=== PATIENT | female | born 2000 ===

== ENCOUNTER 2025-01-30 20:57 | Outpatient (CLI) | payer SELFPAY ==
[2025-01-30 21:07] VITALS: BMI 36.6
[2025-01-30 21:25] VITALS: BP 124/79; PULSE 106
[2025-01-30 22:05] VITALS: BP 116/74; PULSE 96
[2025-01-30 22:18] VITALS: BP 116/67; PULSE 96
[2025-01-30 22:48] VITALS: BP 114/85; PULSE 92
[2025-01-30 23:20] VITALS: BP 114/85; PULSE 92; RESP 16; TEMP 36.7; O2SAT 97
== END 2025-01-30 23:30 | disposition home or self-care (01) ==
LOC: OPOB 21:01 → OBGYN 21:02
PROVIDERS: Visit Provider Family Medicine
DX: O26.899 Other specified pregnancy related conditions, unspecified trimester (principal); Z3A.00 Weeks of gestation of pregnancy not specified; R10.9 Unspecified abdominal pain
CPT/HCPCS: 59025; 99211

== ENCOUNTER 2025-02-03 23:43 | Inpatient (IN) | payer SELFPAY ==
[2025-02-03 23:01] VITALS: BP 127/63; PULSE 88
[2025-02-03 23:11] VITALS: BMI 37.6
[2025-02-03 23:22] VITALS: BP 109/60; PULSE 91
[2025-02-04] VITALS (78 sets, daily range): BP systolic 92–169; BP diastolic 50–97; PULSE 81–118; RESP 16–20; TEMP 36.6–37.1; O2SAT 97–100
[2025-02-04 00:54] LABS: PCP Screen Urine Negative (Negative)
[2025-02-04 01:19] LABS: Hematocrit 39.2 % (36-47); Hemoglobin 12.70 g/dL (11.27-16.99); Mean Corpuscular HGB Conc 32.4 g/dL (30-55); Mean Corpuscular Hemoglobin 27.4 pg (27-33); Mean Corpuscular Volume 84.7 fl (85-98); Nucleated Red Blood Cells % 0 %; Platelet Count 242 10^3/cmm (157-399); Red Blood Count 4.63 10^6/uL (3.85-5.65); White Blood Count 11.82 10^3/uL (3.29-11.43)
[2025-02-04 01:47] LABS: HIV 1 & 2 Antigen Non-Reactive (Non-Reactiv)
[2025-02-04 01:51] LABS: Hepatitis B Surface Antigen Non-Reactive (Nonreactive); Rapid Plasma Reagin Syphilis Nonreactive (Nonreactive)
[2025-02-04 01:57] LABS: Neisseria Gonorrhea NOT DETECTED (Negative)
--- NOTE | 2025-02-04 07:24 | PM.OBGYHP ---
Providers/Chief Complaint Admitting Physician: William Wills MD Chief Complaint: possible ROM HPI MANAGER BUSINESS PROCESS History of Present Illness Regi Fowler is a 24 year old G3, P0 female that presented at 40 weeks 6 days to labor and delivery with possible rupture membranes. Active problem was positive after arrival. Initial check was /3. Patient's is complicated by poor care. The patient did not receive any care until approximately 36 weeks. The patient has 1 ultrasound that was done at 37 weeks and dating is based off it. anatomy was limited on that scan. labs demonstrated O- blood type but she never received RhoGAM. Labs drawn today show O+ and the reports suggest that a week anti-D was present and initially reported as Rh-. Initial urine drug screen was positive for marijuana. GBS is negative. Present Details : 3 Para: 0 Dating criteria OB: based on 3rd trimester US only care: limited care Labs Rubella: Immune RPR: Negative GBS: Unknown HBsAG: Negative Review of Systems General: Reports: 10 or more systems reviewed and unremarkable except in HPI and below Medications/Allergies Home Medications ?Medication ?Instructions ?Recorded ?Confirmed ?Last Taken ?Type vit no.95-ferrous 1 tab PO DAILY 02/04/25 02/04/25 02/03/25 19:00 History fumarate 28 mg-folic acid 800 mcg tablet () Allergies Allergy/AdvReac Type Severity Reaction Status Date / Time No Known Allergies Allergy Verified 02/04/25 00:25 Vitals/I&O/Wt Last Vital Signs Pulse 85 02/04/25 07:13 BP 92/52 02/04/25 07:13 O2 Del Method Room Air 02/03/25 23:56 Weight last 48 hrs Weight 99.564 kg Physical Exam Const: COMMON NORMALS: no acute distress, patient oriented x3 and alert Resp: COMMON NORMALS: normal respiratory effort and No retractions Cardio: COMMON NORMALS: no JVD, regular rate and regular rhythm GI: OTHER: Gravid uterus Back/Pelvis: COMMON NORMALS: no CVA tenderness Extremity: COMMON NORMALS: no clubbing, cyanosis or edema Neuro: COMMON NORMALS: patient oriented x3, moves all extremities, no focal motor deficits and no sensory deficits noted Psych: COMMON NORMALS: mental status grossly normal and cooperative APPEARANCE: Yes unkempt Skin: COMMON NORMALS: no rashes or lesions noted Data 02/03/25 01:04 Results Labs OB ([facility]): Blood Type O Positive 02/03/25 Antibody Screen Negative 02/03/25 Hct, (36-47) 39.2 % 02/03/25 Hgb, (11.27-16.99) 12.70 g/dL 02/03/25 Rho(D) Type Rh positive 02/03/25 Plt Count, (157-399) 242 10^3/cmm 02/03/25 Hep Bs Antigen, (Nonreactive) Non-reactive 02/03/25 Rubella IgG Antibody, (0.0-10.0) 33.2 IU/mL H 02/03/25 RPR, (Nonreactive) Nonreactive 02/03/25 HIV 1&2 Ab & HIV 1 Ag, (Non-Reactiv) Non-reactive 02/03/25 Urine Opiates Screen, (Negative) Negative ng/mL 02/03/25 Ur Barbiturates Screen, (Negative) Negative ng/mL 02/03/25 Ur Phencyclidine Scrn, (Negative) Negative ng/mL 02/03/25 Ur Amphetamines Screen, (Negative) Negative ng/mL 02/03/25 U Benzodiazepines Scrn, (Negative) Negative ng/mL 02/03/25 Urine Cocaine Screen, (Negative) Negative ng/mL 02/03/25 U Marijuana (THC) Screen, (Negative) Negative ng/mL 02/03/25 A&P Assessment and plan 1. Term : Dating is based off of third trimester ultrasound, however the patient is 41 weeks based off those results so she should be full-term. The patient was started on Cytotec and we will continue Cytotec to help with cervical ripening x 3. Continue with routine labor management. 2. Poor patient attendance of care: Patient had very limited care and did not obtain any care until 36 weeks. Initial lab work showed O- blood type but today's lab work was consistent with O+. We will do confirmatory testing for this. PDMP PDMP Reviewed: Not Reviewed Attestations Medical Necessity Statement*: Patient admitted for rupture of membranes. Anticipate at least 2 midnight stay. Coding Level of Care Code Acute Code for Chg Fwd Diagnoses Term Z34.90 Poor patient attendance of care O09.30
[2025-02-04] MEDS: oxytocin 30 UNIT/500 ML BAG IV (11:59)
[2025-02-04] MEDS: ROPivacaine syringe 100 MG/50 ML SYRINGE 13 MG EPIDURAL (13:50)
--- NOTE | 2025-02-04 13:50 | ANES.PREANE2 ---
Pre-Anesthetic Assessment Height/Weight: Height 1.63 m Weight 99.564 kg Temp Pulse Resp BP O2 Del Method 98.4 F 96 18 140/86 Room Air 02/04/25 13:00 02/04/25 13:20 02/04/25 13:00 02/04/25 13:20 02/03/25 23:56 Epidural Familial anesthetic complications: Never had anesthesia/epidural. No family history Was Beta Sonny taken within 24 hours: N/A Was Clonidine taken within 24 hours: N/A Last intake: Breakfast this morning Social Tobacco and No alcohol 0.25 pack(s) per day Exam alert, oriented x 3, clear to auscultation bilaterally and regular rate & rhythm Airway Submandibular: within normal limits Cervical ROM: within normal limits Dentition: chipped (Hole in back tooth) and full History/ROS No significant history except as noted and No significant complaints Pulmonary None reported CV/HEM None reported None reported Hepatic None reported GI Gastroesophageal Reflux Disease (With ) Metabolic None reported Musc/skel None reported Neuropsych Anxiety and Seizure (As a 2 year old. Nothing since) Anesthetic Plan ASA status: 3 Anesthesia: Anesthesia Evaluation, General and Regional (specify below) (Epidural) Risk of > 500 ml blood loss (7ml/kg in children): Yes, adequate IV access and fluids planned Medications/Allergies Home Medications ?Medication ?Instructions ?Recorded ?Confirmed ?Last Taken ?Type vit no.95-ferrous 1 tab PO DAILY 02/04/25 02/04/25 02/03/25 19:00 History fumarate 28 mg-folic acid 800 mcg tablet () Allergies Allergy/AdvReac Type Severity Reaction Status Date / Time No Known Allergies Allergy Verified 02/04/25 00:25 Current Medications Generic Name Dose Route Start Last Admin Trade Name Freq PRN Reason Stop Dose Admin Dextrose/Lactated Ringer's 1,000 mls @ 125 mls/hr 02/03/25 23:45 02/04/25 12:00 Dextrose 5%-Lactated Ringers IV 125 mls/hr .Q8H YUSUF Administration Oxytocin 30 unit in 500 mls @ 1 mls/hr 02/04/25 11:45 02/04/25 13:15 Pitocin IV 7 milliunit/min .Q24H YUSUF 7 mls/hr Protocol Titration 1 MILLIUNIT/MIN PFS Anesthesia Female Reproductive History : 3 Data Anesthesia 02/03/25 01:04 Short CBC 02/03/25 Range/Units 01:04 WBC 11.82 H (3.29-11.43) 10^3/uL Hgb 12.70 (11.27-16.99) g/dL Hct 39.2 (36-47) % MCV 84.7 L (85-98) fl Plt Count 242 (157-399) 10^3/cmm Neut % (Auto) 72.8 % Neut # (Auto) 8.61 H (1.8-7.7) 10^3/uL Blood Bank 02/03/25 00:52 Blood Type O Negative Rho(D) Type Rh negative Antibody Screen Negative
--- NOTE | 2025-02-04 14:51 | ANES.PROC ---
Anesthesia Procedures Procedure/Date: 02/04/25 Epidural: Time Out Performed: Yes Consents Signed: Procedure Consent and NPO Consent Consent: requested by attending/covering physician and from patient Lumbar Level: L3-L4 Epidural position: sitting Epidural procedure: sterile prep of area, 1% lidocaine to numb the area, 18 g needle, negative for paresthesia passed, test dose given, 1.5% xylocaine 1:200k epi, 0.2% Ropivacaine bolus ml, placed PCEA, no systemic response, sterile dressing applied and L.U.D. no apparent complications Additional Comments: Initial catheter attempted to advance without success. Normal saline was then injected in the epidural space with a easy loss of resistance. New catheter was then advanced and placed at 15 cm to the skin. 0.2% ropivacaine set at 13 mL/h
--- NOTE | 2025-02-04 15:38 | P.ANES_ITS ---
Anesthesia Procedures Procedure/Date: 02/04/25 Epidural: Time Out Performed: Yes Consents Signed: Procedure Consent and NPO Consent Consent: requested by attending/covering physician and from patient Lumbar Level: L2-L3 Epidural position: sitting Additional Comments: I was called by OB nurses stating that patient was getting no relief. Discussed with patient options and she decided she would like to replace epidural. CSC was then performed. ChloraPrep was used to prep the skin. 1% lidocaine was used to numb the skin. 18-gauge epidural needle was then introduced until [id number] was received around 8-1/2 cm. A spinal needle was then introduced into the spinal space and 1 cc of 0.25% bupivacaine was then inj ected. Spinal needle was removed and epidural catheter was advanced and left at 15 cm to the skin. Patient tolerated procedure well. Sterile dressing applied. 0.2% ropivacaine set at 13 mL/h
[2025-02-04] MEDS: lidocaine 2% INJ 20 mL INJECTION (18:09)
--- NOTE | 2025-02-04 18:14 | P.PCNOB_ITS ---
Delivery Note: Date of delivery: February 04, 2025 Pre-delivery diagnoses: Term intrauterine Post-delivery diagnoses: Same, viable male Procedure: Spontaneous vaginal delivery Op report anesthesia: Epidural and Spinal Estimated blood loss (mL): 300 Pre-Delivery Course: This is a 24-year-old G3, P1 that presented with rupture membranes. Patient was given 2 doses of Cytotec before the cervix was much more favorable. Patient was then started on Pitocin. Patient eventually started to contract regularly and make persistent changes until completion. Delivery: Once patient was completely dilated patient was placed into the normal lithotomy position and started pushing with each contraction. Several pushes patient did deliver the infant's head followed by the shoulders and body. was then placed onto mother's abdomen. After short delay the cord was clamped and cut. Placenta was delivered soon after. Review of the perineum showed a second- degree perineal tear and a first-degree left labial tear. The perineal tear was repaired with 2-0 Vicryl in a running fashion. The left labial tear was repaired with 3-0 Vicryl in a running fashion. After the end of the procedure the patient's bleeding was managed. Uterus was firm. Post-Delivery Status: Stable History History Other History: Complicated by O- blood without RhoGAM and extremely poor care A&P Assessment and plan 1. Poor patient attendance of care: 2. Normal spontaneous vaginal delivery: Proceed with routine care. PDMP PDMP Reviewed: Not Reviewed Coding Level of Care Code Acute Code for Chg Fwd Diagnoses Poor patient attendance of care O09.30 Normal spontaneous vaginal delivery O80
[2025-02-04] MEDS: benzocaine-menthol 78 gm Canister 1 SPRAY TOPICAL (20:36)
[2025-02-05] VITALS: BP 103/67; PULSE 85; RESP 16; TEMP 36.6
[2025-02-05 04:00] VITALS: BP 113/72; PULSE 92; RESP 18; TEMP 36.7
[2025-02-05 05:52] LABS: Hematocrit 33.3 % (36-47); Hemoglobin 11.10 g/dL (11.27-16.99); Mean Corpuscular HGB Conc 33.3 g/dL (30-55); Mean Corpuscular Hemoglobin 27.5 pg (27-33); Mean Corpuscular Volume 82.6 fl (85-98); Platelet Count 193 10^3/cmm (157-399); Red Blood Count 4.03 10^6/uL (3.85-5.65); White Blood Count 14.87 10^3/uL (3.29-11.43)
[2025-02-05 09:00] VITALS: BP 109/75; PULSE 93; RESP 18; TEMP 36.8; O2SAT 99
[2025-02-05] MEDS: PRENATAL VIT NO.130/IRON/FOLIC 1 EACH TABLET PO (09:25)
[2025-02-05 09:40] VITALS: BP 109/75; PULSE 48; RESP 18; TEMP 36.8
--- NOTE | 2025-02-05 14:26 | ANE.PACU2 ---
Inpatient post-anesthesia follow up: Airway intact: Yes Vital signs: Temperature 98.3 F Pulse Rate 48 Respiratory Rate 18 Blood Pressure 109/75 Pulse Oximetry 99 Oxygen Delivery Me thod Room Air Oxygen Flow Rate Fraction of Inspir ed Oxygen Hydration adequate: Yes Nausea and vomiting: No Pain level: 1 Mental status: Baseline Epidural Start/End: Epidural Start Date: 02/04/25 Epidural Start Time: 14:00 Epidural End Date: 02/04/25 Epidural End Time: 18:14
[2025-02-05 15:45] VITALS: BP 139/89; PULSE 94; RESP 16; TEMP 36.7
--- NOTE | 2025-02-05 18:38 | PM.OBGYDC ---
Discharge Providers POLLS OR SURVEYS INTERVIEWER Date of Admission: 02/03/25 23:43 Date of Discharge: 02/05/25 Attending Provider at Admission: William Wills MD Attending Provider at Discharge: William Wills MD Diagnoses at Discharge Discharge Diagnosis 1. Poor patient attendance of care: 2. Normal spontaneous vaginal delivery: Reason for Visit Reason for Visit: possible ROM Brief History: Is a 24-year-old G3, P1 that presented at 40 weeks 5 days with rupture of membranes. Hospital Course Hospital Course Patient presented with possible rupture of membranes and was found to be active PROM positive. Patient cervix was only 1 cm dilated and thick. 2 doses of Cytotec were given to help with cervical ripening. Pitocin was started soon after to increase frequency and intensity of her contractions. Once patient was in a good contraction pattern the patient progressed as expected to completion. The patient delivered a viable male vaginally without complication. Patient did have a left labial and second-degree perineal tear that was both repaired. Patient had no complications. Patient lochia has been appropriate and vital signs been stable. Information Peripartum Data: Infant Delivery Method: Vaginal Laceration description: Perineal - 2nd Degree complications: none Physical Exam Const: COMMON NORMALS: no acute distress, patient oriented x3 and alert Neck/C-Spine: COMMON NORMALS: no JVD Resp: COMMON NORMALS: normal respiratory effort and No retractions Cardio: COMMON NORMALS: no JVD, regular rate and regular rhythm RATE: regular rate RHYTHM: regular rhythm GI: OTHER: Uterus firm and below umbilicus : COMMON NORMALS: Yes no CVA tenderness BLADDER/KIDNEY EXAM: Yes no CVA tenderness Back/Pelvis: COMMON NORMALS: no CVA tenderness Extremity: COMMON NORMALS: no clubbing, cyanosis or edema Neuro: COMMON NORMALS: patient oriented x3, moves all extremities, no focal motor deficits and no sensory deficits noted SENSORIUM/ORIENTATION: Yes alert Psych: COMMON NORMALS: mental status grossly normal and cooperative APPEARANCE: Yes unkempt Skin: COMMON NORMALS: no rashes or lesions noted GENERAL SKIN EXAM: no rashes or lesions noted Urinary Catheter Management: George: Cath Placed During This Visit: yes Urinary Catheter Date of Insertion: 02/04/25 Urinary Catheter Time of Insertion: 14:45 History History Other History: Complicated by O- blood without RhoGAM and extremely poor care Discharge Data Studies Completed and Pending Pending at discharge Category Date Time Status RPR with Reflex to Titer Routine Lab 02/03/25 01:04 Received Laboratory Results WBC 14.87 10^3/uL (3.29-11.43) H 02/05/25 05:44 RBC 4.03 10^6/uL (3.85-5.65) 02/05/25 05:44 Hgb 11.10 g/dL (11.27-16.99) L 02/05/25 05:44 Hct 33.3 % (36-47) L 02/05/25 05:44 MCV 82.6 fl (85-98) L 02/05/25 05:44 MCH 27.5 pg (27-33) 02/05/25 05:44 MCHC 33.3 g/dL (30-55) 02/05/25 05:44 RDW 14.9 % (12.1-15.1) 02/05/25 05:44 Plt Count 193 10^3/cmm (157-399) 02/05/25 05:44 MPV 11.4 fL (7.4-10.4) H 02/05/25 05:44 Neut % (Auto) 72.8 % 02/03/25 01:04 Lymph % (Auto) 16.3 % 02/03/25 01:04 Davison % (Auto) 5.8 % 02/03/25 01:04 Eos % (Auto) 3.5 % 02/03/25 01:04 Baso % (Auto) 0.4 % 02/03/25 01:04 Neut # (Auto) 8.61 10^3/uL (1.8-7.7) H 02/03/25 01:04 Lymph # (Auto) 1.9 10^3/uL (0.8-4.8) 02/03/25 01:04 Davison # (Auto) 0.7 10^3/uL (0.2-0.9) 02/03/25 01:04 Eos # (Auto) 0.4 10^3/uL (0.0-0.8) 02/03/25 01:04 Baso # (Auto) 0.1 10^3/uL (0.0-0.1) 02/03/25 01:04 Nucleated RBC % (auto) 0 % 02/03/25 01:04 Nucleated RBCs # 0.0 /100WBC 02/03/25 01:04 Insulin-like GF I Positive 02/03/25 22:50 Urine Opiates Screen Negative ng/mL (Negative) 02/03/25 23:44 Ur Barbiturates Screen Negative ng/mL (Negative) 02/03/25 23:44 Ur Phencyclidine Scrn Negative ng/mL (Negative) 02/03/25 23:44 Ur Amphetamines Screen Negative ng/mL (Negative) 02/03/25 23:44 U Benzodiazepines Scrn Negative ng/mL (Negative) 02/03/25 23:44 Urine Cocaine Screen Negative ng/mL (Negative) 02/03/25 23:44 U Marijuana (THC) Screen Negative ng/mL (Negative) 02/03/25 23:44 RPR Nonreactive (Nonreactive) 02/03/25 01:04 C. trachomatis (PCR) Not detected (Negative) 02/03/25 23:45 Hep Bs Antigen Non-reactive (Nonreactive) 02/03/25 01:04 HIV 1&2 Ab & HIV 1 Ag Non-reactive (Non-Reactiv) 02/03/25 01:04 HIV 1&2 Antibody Non-reactive (Non-Reactiv) 02/03/25 01:04 N. gonorrhoeae (PCR) Not detected (Negative) 02/03/25 23:45 Rubella IgG Antibody 33.2 IU/mL (0.0-10.0) H 02/03/25 01:04 Blood Type O Negative 02/03/25 00:52 Rho(D) Type Rh negative 02/03/25 00:52 Antibody Screen Negative 02/03/25 00:52 Screen Negative (Negative) 02/05/25 05:44 Vitals Last Vital Signs Temp 98.1 F 02/05/25 15:45 Pulse 94 02/05/25 15:45 Resp 16 02/05/25 15:45 BP 139/89 02/05/25 15:45 Pulse Ox 99 02/05/25 09:00 O2 Del Method Room Air 02/05/25 15:45 Results Labs OB ([facility]): Blood Type O Negative 02/03/25 Antibody Screen Negative 02/03/25 Hct, (36-47) 33.3 % L Today Hgb, (11.27-16.99) 11.10 g/dL L Today Rho(D) Type Rh negative 02/03/25 Plt Count, (157-399) 193 10^3/cmm Today Hep Bs Antigen, (Nonreactive) Non-reactive 02/03/25 Rubella IgG Antibody, (0.0-10.0) 33.2 IU/mL H 02/03/25 RPR, (Nonreactive) Nonreactive 02/03/25 HIV 1&2 Ab & HIV 1 Ag, (Non-Reactiv) Non-reactive 02/03/25 Urine Opiates Screen, (Negative) Negative ng/mL 02/03/25 Ur Barbiturates Screen, (Negative) Negative ng/mL 02/03/25 Ur Phencyclidine Scrn, (Negative) Negative ng/mL 02/03/25 Ur Amphetamines Screen, (Negative) Negative ng/mL 02/03/25 U Benzodiazepines Scrn, (Negative) Negative ng/mL 02/03/25 Urine Cocaine Screen, (Negative) Negative ng/mL 02/03/25 U Marijuana (THC) Screen, (Negative) Negative ng/mL 02/03/25 Discharge Plan Discharge Patient Disposition: Home Condition: Stable Prescriptions: Continued PNV no.95-ferrous fumarate-FA [] 28 mg iron- 800 mcg Tablet 1 tab PO DAILY Discharge Order = DC NOW: Discharge Order (Routine); Ordered 02/05/25 Ordered By: William Wills Referrals: William Wills MD [Physician, Family Practice] - 03/18/25 9:00 am Discharge Diet: Usual diet Discharge Activity: Limit activity as instructed Patient Instructions: Depression (DC), Opioid Safety (DC), Preeclampsia and Eclampsia After Delivery (GEN), Hemorrhage (DC), OB Discharge Report, OB Food/Drug Interaction Guide, OB Care at Home, Opioid Safety, OB Vaginal Deliveries, Patient Portal & Alex Instructions, Abnormal Bleeding Discharge Attestations POLLS OR SURVEYS INTERVIEWER Time Spent in Discharge Care*: less than 30 min Coding Level of Care Code Acute Code for Chg Fwd Diagnoses Poor patient attendance of care O09.30 Normal spontaneous vaginal delivery O80
[2025-02-05 20:31] VITALS: BP 109/73; PULSE 96; RESP 18; TEMP 36.8; O2SAT 98
[2025-02-06 09:54] LABS: RPR w(Moniotor) w/REFL Titer NON-REACTIVE (NON-REACTIVE)
== END 2025-02-05 20:08 | disposition home or self-care (01) | DRG 807 ==
LOC: OPOB 02-04 07:54 → OBGYN 02-04 07:55
PROVIDERS: Admitting Provider Family Medicine; Visit Provider Family Medicine
DX: O48.0 Post-term pregnancy (principal); Z37.0 Single live birth; Z3A.40 40 weeks gestation of pregnancy; O09.33 Supervision of pregnancy with insufficient antenatal care, third trimester; O70.1 Second degree perineal laceration during delivery
CPT/HCPCS: 36415; 51702; 59025; 80306; 83986; 84112; 85025; 85027; 85460; 86592; 86762; 86850; 86900; 87340; 87491; 87591; 87806; 90384; 99211; J2590; J2795; J7120; J7121; J9999